=== PATIENT | male | born 2000 | race Caucasian/White ===

== ENCOUNTER 2021-01-20 12:51 | Emergency (ER) | payer BC, MEDICAID ==
[2021-01-20] MEDS ORDERED: Sodium Chloride 0.9% 10 ML Syringe FLUSH PRN (13:06)
[2021-01-20] MEDS ORDERED: Ketorolac 30 MG/ML SDV IVPUSH ONE (13:06)
[2021-01-20] MEDS ORDERED: Sodium Chloride 0.9% 1,000 ML IV SCH (13:15)
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
[2021-01-20 13:28] VITALS: BP 163/65; PULSE 74
[2021-01-20] MEDS ORDERED: Propofol 200 MG/20 ML SDV ONE (14:07)
--- NOTE | 2021-01-21 09:51 | CR ---
Wrist 2V Lt CLINICAL HISTORY: Trauma and pain FINDINGS: There is a comminuted dorsally displaced fracture of the distal radius. There is also fracture of the ulnar styloid from the base. Impression: Displaced distal radial fracture Displaced fracture ulnar styloid
== END 2021-01-20 14:40 | disposition home or self-care (01) ==
LOC: JP.ED 12:51
DX: S52.502A Unspecified fracture of the lower end of left radius, initial encounter for closed fracture (principal); S52.612A Displaced fracture of left ulna styloid process, initial encounter for closed fracture; R56.9 Unspecified convulsions; Z79.899 Other long term (current) drug therapy; V86.52XA Driver of snowmobile injured in nontraffic accident, initial encounter
CPT/HCPCS: 25605; 73100; 76000; 96374; 99283; 99284; J1885; J2704; J7030

== ENCOUNTER 2021-01-25 06:05 | Day surgery (SDC) | payer MEDICAID ==
[2021-01-25] MEDS ORDERED: Bupivacaine 0.5% 30 ML SDV ONE (06:34)
[2021-01-25] MEDS ORDERED: Lactated Ringers 1,000 ML IV SCH (07:00)
[2021-01-25] MEDS ORDERED: Nozin Nasal Sanitizer NASBOTH ONE (07:00)
[2021-01-25] MEDS ORDERED: ceFAZolin 2 GM in Sodium Chloride 0.9% 100 ML IV ONE (07:30)
[2021-01-25] MEDS ORDERED: ceFAZolin 2 GM in Premix Bag 1 BAG IV ONE (07:30)
[2021-01-25] MEDS ORDERED: fentaNYL 250 MCG/5 ML SDV ONE (08:07)
[2021-01-25] MEDS ORDERED: Glycopyrrolate 0.2 MG/ML 5 ML MDV ONE (08:10)
[2021-01-25] MEDS ORDERED: Rocuronium 50 MG/5 ML Vial ONE (08:10)
[2021-01-25] MEDS ORDERED: Propofol 200 MG/20 ML SDV ONE ×2 (08:10→09:06)
[2021-01-25] MEDS ORDERED: Ondansetron 4 MG/2 ML SDV ONE (08:10)
[2021-01-25] MEDS ORDERED: Neostigmine Methylsulfate 1 MG/ML 5 ML Syringe ONE (08:10)
[2021-01-25] MEDS ORDERED: Dexamethasone 4 MG/ML SDV ONE (08:10)
[2021-01-25] MEDS ORDERED: fentaNYL 100 MCG/2 ML SDV ONE (09:07)
[2021-01-25] MEDS ORDERED: Ketorolac 60 MG/2 ML SDV ONE (09:33)
[2021-01-25] MEDS ORDERED: Acetaminophen/HYDROcodone 325-5 MG Tab PO PRN (11:15)
[2021-01-25 12:32] VITALS: BP 122/70; PULSE 64
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
== END 2021-01-25 12:37 | disposition home or self-care (01) ==
LOC: JP.SDS 06:05
PROVIDERS: ATTEND Specialist
DX: S52.552A Other extraarticular fracture of lower end of left radius, initial encounter for closed fracture (principal); Z01.812 Encounter for preprocedural laboratory examination; Z20.822 Contact with and (suspected) exposure to COVID-19; Z98.890 Other specified postprocedural states; X58.XXXA Exposure to other specified factors, initial encounter
CPT/HCPCS: 36415; 76000; 80048; 85027; A9270-GY; C1713; J0690; J1100; J1885; J2405; J2704; J2710; J3010; J3490; J7120; U0002

== ENCOUNTER 2024-05-19 20:18 | Emergency (ER) | payer OTHER, MEDICAID ==
[2024-05-19 20:51] VITALS: BP 118/67; PULSE 70
[2024-05-19] MEDS: Lidocaine 1% with EPINEPHrine 1:100,000 20 ML MDV INJECT ONE (22:34)
[2024-05-19] MEDS: Bacitracin Oint 1 GM U/D Packet TOP ONE (22:34)
== END 2024-05-19 23:32 | disposition home or self-care (01) ==
LOC: JP.ED 20:18
DX: S61.412A Laceration without foreign body of left hand, initial encounter (principal); Z79.899 Other long term (current) drug therapy; W26.8XXA Contact with other sharp object(s), not elsewhere classified, initial encounter; Y93.89 Activity, other specified
CPT/HCPCS: 12001; 99282; 99283